=== PATIENT | male | born 1970 | race Hispanic/Latino ===

== ENCOUNTER 2021-06-02 06:35 | Day surgery (SDC) | payer OTHER ==
[~2021-06-02] VITALS: Ht 177.8 cm; Wt 131.1 kg
[2021-06-02] VITALS (7 sets, daily range): BP systolic 112–144; BP diastolic 51–83
[~2021-06-02 06:35] MED LIST: ASPI-1197 PO; ATOR20TA65 PO; LOSA100T58 PO; PIOG30TA70 PO; SEMA1PEN3 SQ; steglatro PO
[2021-06-02] MEDS: 0.9%NACL 1000ML 1,000 ML IV ONE (07:44)
[2021-06-02] MEDS ORDERED: PROPOFOL 10 MG/ML 20ML VIAL IV ONE ×2 (09:47)
== END 2021-06-02 10:37 | disposition home or self-care (01) ==
LOC: ENDO 06:35 → DAH 06:35 → ENDO 10:37
PROVIDERS: ATTEND Internal Medicine Gastroenterology
DX: Z12.11 Encounter for screening for malignant neoplasm of colon (principal); K64.0 First degree hemorrhoids; I10 Essential (primary) hypertension; E11.9 Type 2 diabetes mellitus without complications; E78.5 Hyperlipidemia, unspecified; Z79.82 Long term (current) use of aspirin; Z79.899 Other long term (current) drug therapy; Z20.822 Contact with and (suspected) exposure to COVID-19
CPT/HCPCS: 45378; 82948 ×2; 87635; A4215 ×2; A4221; A4222; A4223; A4606; A4620; A4663; C9803; J2704 ×2; J7030

== ENCOUNTER → 2021-09-07 | Outpatient (CLI) | payer OTHER | END | disposition home or self-care (01) | LOC: SHCH 13:00 | PROVIDERS: ATTEND Student in an Organized Health Care Education/Training Program | DX: I10 Essential (primary) hypertension (principal); E11.9 Type 2 diabetes mellitus without complications; E66.9 Obesity, unspecified; E78.5 Hyperlipidemia, unspecified | CPT/HCPCS: 93306 ==